=== PATIENT | male | born 1945 | race Caucasian/White ===

== ENCOUNTER 2020-01-22 15:16 | Emergency (ER) | payer MEDICARE, BC ==
[2020-01-22] MEDS ORDERED: Sodium Chloride 0.9% 10 ML Syringe FLUSH PRN (15:19)
[2020-01-22] MEDS ORDERED: Aspirin 81 MG Tab.Chew PO ONE (15:19)
[2020-01-22] MEDS ORDERED: Pantoprazole 40 MG Vial IVPUSH ONE (15:27)
--- NOTE | 2020-01-22 15:32 | EDM.PDOC ---
ED HPI GENERAL MEDICAL PROBLEM - General Chief Complaint: Cardiovascular Problem Stated Complaint: chest pains Time Seen by Provider: 01/22/20 15:28 Source of Information: Reports: Patient History Limitations: Reports: No Limitations - History of Present Illness INITIAL COMMENTS - FREE TEXT/NARRATIVE: Presents with anterior chest pain @1200 today, resolved on arrival to the ED after RN gave ASA 324mg PO. No complains of mid abdominal pain (mild). Denies SOB, or nausea. Had similar chest pain 2 days ago, resolved after ASA 324mg PO. Denies prior h/o CAD or AAA. Onset Date: 01/22/20 Onset Time: 12:00 Location: Reports: Chest, Abdomen Quality: Reports: Ache Severity: Moderate mid chest Pain Score (Numeric/FACES): 7 - Related Data Allergies Allergy/AdvReac Type Severity Reaction Status Date / Time No Known Allergies Allergy Verified 07/20/18 06:18 Home Meds: Home Meds Aspirin [Lo-Dose Aspirin EC] 81 mg PO DAILY 07/20/18 [History] Hydrocodone/Acetaminophen [[place] 5-325 Tablet] 1 - 2 each PO Q6H PRN #15 tablet 07/20/18 [Rx] Naproxen Sodium [Aleve] 220 mg PO DAILY 07/20/18 [History] atorvaSTATin [Lipitor] 40 mg PO DAILY 07/20/18 [History] methocarbamoL [Robaxin] 750 mg PO Q8H PRN #20 tab 07/20/18 [Rx] Past Medical History Cardiovascular History: Reports: High Cholesterol. Denies: CAD - Past Surgical History HEENT Surgical History: Reports: Tonsillectomy GI Surgical History: Reports: Cholecystectomy Social & Family History - Tobacco Use Smoking Status *Q: Current Every Day Smoker Tobacco Use Within Last Twelve Months: Cigarettes ED ROS GENERAL - Review of Systems Review Of Systems: Comprehensive ROS is negative, except as noted in HPI. ED EXAM, GENERAL - Physical Exam Exam: See Below Exam Limited By: No Limitations General Appearance: Alert, WD/WN, No Apparent Distress Ears: Normal External Exam Nose: Normal Inspection Throat/Mouth: No Airway Compromise Head: Atraumatic, Normocephalic Neck: Full Range of Motion Respiratory/Chest: No Respiratory Distress, Lungs Clear, Normal Breath Sounds Cardiovascular: Regular Rate, Rhythm, No Murmur GI/Abdominal: Normal Bowel Sounds, Soft, Non-Tender, No Distention Extremities: Normal Range of Motion Neurological: Alert, Normal Cognition Psychiatric: Normal Affect, Normal Mood Skin Exam: Warm, Dry, Intact EKG INTERPRETATION EKG Date: 01/22/20 Time: 15:09 Rhythm: NSR Rate (Beats/Min): 79 [place]: Normal P-Wave: Present QRS: Normal ST-T: Other (inverted T in III, flattened T in aVF) QT: Normal Comparison: NA - No Prior EKG Course - Vital Signs Last Recorded V/S: Last Vital Signs Temp 36.6 C 01/22/20 15:16 Pulse 78 01/22/20 15:16 Resp 20 01/22/20 15:16 BP 164/92 H 01/22/20 15:16 Pulse Ox 98 01/22/20 15:16 - Orders/Labs/Meds Orders: Active Orders 24 hr Category Date Time Status EKG Documentation Completion [RC] ASDIRECTED Care 01/22/20 15:18 Active CXR [Chest 1V Frontal] [CR] Stat Exams 01/22/20 15:18 Taken Heparin Sodium/0.45% NaCl [Heparin 25,000 Units in 1/2 Med 01/22/20 16:15 Ordered NS 500 ML] 500 ml IV ASDIRECTED Sodium Chloride 0.9% [Saline Flush] Med 01/22/20 15:19 Active 10 ml FLUSH ASDIRECTED PRN Saline Lock Insert [OM.PC] Routine Oth 01/22/20 15:19 Ordered EKG 12 Lead [EK] Stat Ther 01/22/20 15:18 Ordered Medication Orders Heparin Sodium/Sodium Chloride (Heparin 25,000 Units In 1/2 Ns 500 Ml) 500 mls @ 19 mls/hr IV ASDIRECTED [place] Sodium Chloride (Saline Flush) 10 ml FLUSH ASDIRECTED PRN PRN Reason: Keep Vein Open Last Admin: 01/22/20 15:50 Dose: 10 ml Documented by: BERRY Labs: Laboratory Tests 01/22/20 01/22/20 01/22/20 Range/Units 15:10 15:10 15:10 WBC 6.8 (4.5-12.0) X10-3/uL RBC 5.21 (4.30-5.75) x10(6)uL Hgb 15.3 (13.5-17.8) g/dL Hct 47.2 (30.0-51.3) % MCV 90.6 (80-96) fL MCH 29.4 (27.7-33.6) pg MCHC 32.4 (32.2-35.4) g/dL RDW 12.2 (11.5-15.5) % Plt Count 226 (125-369) X10(3)uL MPV 7.9 (7.4-10.4) fL Neut % (Auto) 67.1 (46-82) % Lymph % (Auto) 22.7 (13-37) % [place] % (Auto) 7.2 (4-12) % Eos % (Auto) 3 (1.0-5.0) % Baso % (Auto) 1 (0-2) % Neut # (Auto) 4.6 (1.6-8.3) # Lymph # (Auto) 1.5 (0.6-5.0) # [place] # (Auto) 0.5 (0.0-1.3) # Eos # (Auto) 0.2 (0.0-0.8) # Baso # (Auto) 0.0 (0.0-0.2) # PT 10.6 (9.0-11.1) sec INR 0.98 L (1.00-1.24) APTT 23.6 L (24.4-33.2) SECONDS Sodium 141 (135-145) mmol/L Potassium 4.0 (3.5-5.3) mmol/L Chloride 106 (100-110) mmol/L Carbon Dioxide 27 (21-32) mmol/L BUN 19 H (7-18) mg/dL Creatinine 1.0 (0.70-1.30) mg/dL Est Cr Clr Drug Dosing 59.37 mL/min Estimated GFR (MDRD) > 60 (>60) BUN/Creatinine Ratio 19.0 (9-20) Glucose 110 (80-116) mg/dL Calcium 9.2 (8.6-10.2) mg/dL Total Bilirubin 0.5 (0.1-1.3) mg/dL AST 18 (5-25) IU/L ALT 29 (12-36) U/L Alkaline Phosphatase 115 H (56-112) IU/L Troponin I (4.0-60.3) pg/mL Total Protein 6.8 (6.0-8.0) g/dL Albumin 3.6 (3.2-4.6) g/dL Globulin 3.2 g/dL Albumin/Globulin Ratio 1.1 Lipase (73-393) U/L 01/22/20 01/22/20 Range/Units 15:10 15:10 WBC (4.5-12.0) X10-3/uL RBC (4.30-5.75) x10(6)uL Hgb (13.5-17.8) g/dL Hct (30.0-51.3) % MCV (80-96) fL MCH (27.7-33.6) pg MCHC (32.2-35.4) g/dL RDW (11.5-15.5) % Plt Count (125-369) X10(3)uL MPV (7.4-10.4) fL Neut % (Auto) (46-82) % Lymph % (Auto) (13-37) % [place] % (Auto) (4-12) % Eos % (Auto) (1.0-5.0) % Baso % (Auto) (0-2) % Neut # (Auto) (1.6-8.3) # Lymph # (Auto) (0.6-5.0) # [place] # (Auto) (0.0-1.3) # Eos # (Auto) (0.0-0.8) # Baso # (Auto) (0.0-0.2) # PT (9.0-11.1) sec INR (1.00-1.24) APTT (24.4-33.2) SECONDS Sodium (135-145) mmol/L Potassium (3.5-5.3) mmol/L Chloride (100-110) mmol/L Carbon Dioxide (21-32) mmol/L BUN (7-18) mg/dL Creatinine (0.70-1.30) mg/dL Est Cr Clr Drug Dosing mL/min Estimated GFR (MDRD) (>60) BUN/Creatinine Ratio (9-20) Glucose (80-116) mg/dL Calcium (8.6-10.2) mg/dL Total Bilirubin (0.1-1.3) mg/dL AST (5-25) IU/L ALT (12-36) U/L Alkaline Phosphatase (56-112) IU/L Troponin I 116.3 H* (4.0-60.3) pg/mL Total Protein (6.0-8.0) g/dL Albumin (3.2-4.6) g/dL Globulin g/dL Albumin/Globulin Ratio Lipase 127 (73-393) U/L Meds: Medications Generic Name Dose Route Start Last Admin Trade Name Freq PRN Reason Stop Dose Admin Heparin Sodium/Sodium Chloride 500 mls @ 19 mls/hr 01/22/20 16:15 Heparin 25,000 Units In 1/2 Ns 500 Ml IV ASDIRECTED [place] Sodium Chloride 10 ml 01/22/20 15:19 01/22/20 15:50 Saline Flush FLUSH 10 ml ASDIRECTED PRN Administration Keep Vein Open Discontinued Medications Generic Name Dose Route Start Last Admin Trade Name Freq PRN Reason Stop Dose Admin Aspirin 324 mg 01/22/20 15:19 01/22/20 15:16 Aspirin PO 01/22/20 15:20 324 mg ONETIME ONE Administration Heparin Sodium (Porcine) 4,000 units 01/22/20 16:13 Heparin Sodium IVPUSH 01/22/20 16:14 ONETIME ONE Pantoprazole Sodium 40 mg 01/22/20 15:27 01/22/20 15:50 Protonix Iv IVPUSH 01/22/20 15:28 40 mg ONETIME ONE Administration - Radiology Interpretation Free Text/Narrative:: CXR: No acute process. (ED provider interpretation) - Re-Assessments/Exams Free Text/Narrative Re-Assessment/Exam: 01/22/20 16:17 BP improved to 125/89. Complains of mild mid abdominal pain. 01/22/20 16:22 Dr. Graham accepts transfer to [facility], will transport by ALS ground. Departure - Departure Time of Disposition: 16:21 Disposition: DC/Tfer to Acute Hospital 02 Reason for Transfer *Q: Primary PCI Indicated Condition: Fair Clinical Impression: Non-STEMI (non-ST elevated myocardial infarction) Referrals: PCP,None [Primary Care Provider] - Forms: ED Department Discharge Sepsis Event Note (ED) - Focused Exam Vital Signs: Vital Signs Temp Pulse Resp BP Pulse Ox 01/22/20 15:16 36.6 C 78 20 164/92 H 98 - My Orders Last 24 Hours: My Active Orders 01/22/20 15:18 EKG Documentation Completion [RC] ASDIRECTED CXR [Chest 1V Frontal] [CR] Stat EKG 12 Lead [EK] Stat 01/22/20 15:19 Sodium Chloride 0.9% [Saline Flush] 10 ml FLUSH ASDIRECTED PRN Saline Lock Insert [OM.PC] Routine 01/22/20 16:15 Heparin Sodium/0.45% NaCl [Heparin 25,000 Units in 1/2 NS 500 ML] 500 ml IV ASDIRECTED - Assessment/Plan Last 24 Hours: My Active Orders 01/22/20 15:18 EKG Documentation Completion [RC] ASDIRECTED CXR [Chest 1V Frontal] [CR] Stat EKG 12 Lead [EK] Stat 01/22/20 15:19 Sodium Chloride 0.9% [Saline Flush] 10 ml FLUSH ASDIRECTED PRN Saline Lock Insert [OM.PC] Routine 01/22/20 16:15 Heparin Sodium/0.45% NaCl [Heparin 25,000 Units in 1/2 NS 500 ML] 500 ml IV ASDIRECTED
[2020-01-22] MEDS ORDERED: Heparin Sodium 5,000 Units/ML Vial IVPUSH ONE (16:13)
[2020-01-22] MEDS ORDERED: Heparin Sodium/0.45% NaCl 500 ML IV SCH (16:15)
--- NOTE | 2020-01-22 18:09 | CR ---
INDICATION: Chest pain. CHEST, ONE VIEW: An AP upright portable view of the chest was obtained 01/22/20 - no comparison. The heart did not appear grossly enlarged. Overlying EKG leads are noted. An active infiltrate or effusion was not identified. Similar new densities are noted at the left lung base which may represent fibrosis and/or linear atelectasis. The aorta is tortuous with calcification in the arch. IMPRESSION: 1. No definite acute process - minimal linear atelectatic change may be present at the left lower lobe. 2. ASD aorta. MTDD
== END 2020-01-22 17:48 ==
LOC: FB.ED 15:16
DX: I21.4 Non-ST elevation (NSTEMI) myocardial infarction (principal); E78.00 Pure hypercholesterolemia, unspecified; F17.210 Nicotine dependence, cigarettes, uncomplicated; Z79.899 Other long term (current) drug therapy; Z79.82 Long term (current) use of aspirin
CPT/HCPCS: 36415; 71045; 80053; 83690; 84484; 85025; 85610; 85730; 93005; 93010; 96365; 96375; 99285; A9270; C9113; J1644

== ENCOUNTER 2023-06-29 06:46 | Day surgery (SDC) | payer MEDICARE, BC ==
[~2023-06-29 06:46] MED LIST: Lactated Ringers 1,000 ML IV PRN; Sodium Chloride 0.9% 10 ML Syringe FLUSH PRN
[2023-06-29] MEDS ORDERED: fentaNYL 100 MCG/2 ML SDV IV ONE (06:47)
[2023-06-29] MEDS ORDERED: Midazolam 1 MG/ML 2 ML SDV IV ONE (06:47)
[2023-06-29] MEDS ORDERED: Sodium Chloride 0.9% 10 ML Syringe IV ONE (06:47)
[2023-06-29] MEDS ORDERED: acetaZOLAMIDE 500 MG Cap.ER PO ONE (09:00)
== END 2023-06-29 09:46 | disposition home or self-care (01) ==
LOC: FB.SDS 06:46
PROVIDERS: ATTEND Ophthalmology
DX: H25.813 Combined forms of age-related cataract, bilateral (principal); H25.13 Age-related nuclear cataract, bilateral; H04.123 Dry eye syndrome of bilateral lacrimal glands; H43.812 Vitreous degeneration, left eye; G20.A1 Parkinson's disease without dyskinesia, without mention of fluctuations; I48.11 Longstanding persistent atrial fibrillation; E78.49 Other hyperlipidemia; I25.10 Atherosclerotic heart disease of native coronary artery without angina pectoris; Z87.891 Personal history of nicotine dependence; Z79.02 Long term (current) use of antithrombotics/antiplatelets; Z79.899 Other long term (current) drug therapy
CPT/HCPCS: 66984; A9270; J2250; J3010; J3490; V2632

== ENCOUNTER 2023-07-13 07:48 | Day surgery (SDC) | payer MEDICARE, BC ==
[2023-07-13] MEDS ORDERED: Midazolam 1 MG/ML 2 ML SDV IV ONE (07:49)
[2023-07-13] MEDS ORDERED: fentaNYL 100 MCG/2 ML SDV IV ONE (07:49)
[2023-07-13] MEDS ORDERED: Sodium Chloride 0.9% 10 ML Syringe FLUSH PRN (08:00)
[2023-07-13] MEDS ORDERED: Lactated Ringers 1,000 ML IV PRN (08:00)
[2023-07-13] MEDS ORDERED: acetaZOLAMIDE 500 MG Cap.ER PO ONE (10:00)
== END 2023-07-13 10:24 | disposition home or self-care (01) ==
LOC: FB.SDS 07:48
PROVIDERS: ATTEND Ophthalmology
DX: H26.9 Unspecified cataract (principal); I48.11 Longstanding persistent atrial fibrillation; G20.A1 Parkinson's disease without dyskinesia, without mention of fluctuations; I25.10 Atherosclerotic heart disease of native coronary artery without angina pectoris; Z87.891 Personal history of nicotine dependence; Z79.01 Long term (current) use of anticoagulants; Z79.02 Long term (current) use of antithrombotics/antiplatelets; Z79.899 Other long term (current) drug therapy
CPT/HCPCS: 66984; A9270; J2250; J3010; J3490; V2632; 00142; 99100

== ENCOUNTER 2025-06-28 09:39 | Emergency (ER) | payer MEDICARE, BC | END 2025-06-28 10:50 | disposition home or self-care (01) | LOC: FB.ED 09:39 | DX: S49.91XA Unspecified injury of right shoulder and upper arm, initial encounter (principal); E78.00 Pure hypercholesterolemia, unspecified; Z79.899 Other long term (current) drug therapy; W18.40XA Slipping, tripping and stumbling without falling, unspecified, initial encounter | CPT/HCPCS: 73030-RT; 99283 ==